=== PATIENT | female | born 1950 | race Caucasian/White ===

== ENCOUNTER 2018-01-12 12:31 | Inpatient (IN) ==
[2018-01-12] MEDS ORDERED: Sod Chloride 0.9% Inj 1,000 ML IV.CONT SCH (16:15)
[2018-01-13] MEDS: Pantoprazole Inj 40 MG Vial IV.PUSH SCH ×3 (00:44→20:58)
[2018-01-13 01:20] LABS: Hematocrit 25.3 % (35.0-46.0); Hemoglobin 8.3 gm/dL (11.6-15.3)
[2018-01-13 06:11] LABS: Eos # (Auto) 0.1 th/mm3 (0.0-0.4); Eos % (Auto) 3.2 % (0.0-4.0); Hematocrit 21.4 % (35.0-46.0); Hemoglobin 7.2 gm/dL (11.6-15.3); Lymph # (Auto) 1.3 th/mm3 (1.0-4.8); Lymph % (Auto) 29.2 % (9.0-44.0); Mean Corpuscular HGB Conc 33.7 % (32.0-36.0); Mean Corpuscular Hemoglobin 30.7 pg (27.0-34.0); Mean Platelet Volume 7.7 fL (7.0-11.0); Mono # (Auto) 0.3 th/mm3 (0.0-0.9); Neut # (Auto) 2.8 th/mm3 (1.8-7.7); Neut % (Auto) 59.6 % (16.0-70.0); Platelet Count 129 th/mm3 (150-450); Red Blood Count 2.35 mil/mm3 (4.00-5.30); White Blood Count 4.5 th/mm3 (4.0-11.0)
[2018-01-13 06:21] LABS: Chloride 111 meq/L (98-107); Potassium 4.3 meq/L (3.5-5.1); Sodium 141 meq/L (136-145)
[2018-01-13 06:25] LABS: Calcium 8.9 mg/dL (8.5-10.1)
[2018-01-13 06:26] LABS: Albumin 2.4 g/dL (3.4-5.0); Anion Gap 5 meq/L (5-15); Blood Urea Nitrogen 26 mg/dL (7-18); Carbon Dioxide 24.9 meq/L (21.0-32.0); Glucose,Random 111 mg/dL (74-106)
[2018-01-13 06:29] LABS: Alanine Aminotransferase 26 U/L (10-53); Aspartate Aminotransferase 31 U/L (15-37); Glomerular Filtration Rate 55 mL/min (>89)
[2018-01-13 06:31] LABS: Total Protein 5.7 g/dL (6.4-8.2)
[2018-01-13 06:32] LABS: Alkaline Phosphatase 73 U/L (45-117)
--- NOTE | 2018-01-13 08:09 | P.HP ---
History of Present Illness Primary Care Physician: Marleen Marti Chief Complaint: Black stools History of Present Illness: This is a pleasant 67-year-old female patient with a known medical history of GERD who presented to the ED with complaints of black tarry stool. Patient states that she has been having black tarry stool for the past 2 days. With associated episodes of nausea and vomiting intermittently she denies any abdominal pain. Patient denies any recent use of NSAIDs. She does take a Prilosec for GERD daily, states that this is well controlled. She does state that she has been feeling lightheaded, dizzy, overall fatigued over the past week. She denies any recent fevers, chills, cough, shortness of breath, diarrhea or dysuria. She does admit to having a colonoscopy roughly 4 years ago which was reportedly negative. Patient does not remember the name of her digital retoucher. 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 Patient was on Coumadin roughly 5 years ago and since that time has been discontinued. Patient denies any significant family medical history. Does admit to smoking a half pack a day of cigarettes for the last 50 years. Denies any alcohol abuse. Has had a cholecystectomy. - Diagnosis (1) GI bleed Inpatient Certification: I certify that the inpatient services were ordered in accordance with Medicare regulations governing the order. This includes certification that hospital inpatient services are reasonable and necessary and in the case of services not specified as inpatient-only under 42 CFR 419.22(n), that they are appropriately provided as inpatient services in accordance to with the 2-midnight benchmark under 43 CFR 412.3(e) Estimated Total Length of Stay (Days): 2 Plans for Post Hospital Care: Home Review of Systems All other systems reviewed negative except as stated in HPI PMFSH - History History Provided By: Patient - Medical History Medical History: Medical History (Last Updated 01/12/18 @ 14:40 by Alannah Boss RN) GERD (gastroesophageal reflux disease) History of pulmonary embolus (PE) Hx of cataract Hx of deep venous thrombosis - Surgical History Surgical History: Surgical History (Last Reviewed 01/12/18 @ 14:40 by Alannah Boss RN) History of cholecystectomy - Family History Family History: Family History (Last Updated 08/08/18 @ 11:55 by Betzaida Naik) Other No pertinent family history - Tobacco History Second Hand Smoke Exposure: Yes Tobacco Use In Past 30 Days: Yes Smoking Status: Current every day smoker Tobacco Type: Cigarettes - Alcohol History How Often Do You Have a Drink Containing Alcohol: 2 to 3 times a week - Substance Use History Substance History: No History of Abuse - Travel History Recent Travel in the [place] Within the Last 8 Weeks: No Recent Travel Out of the Country Within the Last 8 Weeks: No Medications and Allergies Active Medications: Active Medications Pantoprazole Sodium (Protonix Inj) 40 mg IV.PUSH BID [facility] Last Admin: 01/13/18 00:44 Dose: 40 mg Sodium Chloride (Ns Flush) 2 ml IV.FLUSH BID [facility] Last Admin: 01/13/18 00:32 Dose: Not Given Sodium Chloride (Ns Flush) 2 ml IV.FLUSH PRN PRN PRN Reason: FLUSH AFTER USING IV ACCESS Allergies Allergy/AdvReac Type Severity Reaction Status Date / Time codeine Allergy Chest Pain Verified 01/12/18 12:50 Home Medications Medication Instructions Recorded Confirmed Type omeprazole magnesium [Prilosec OTC] 20 mg PO DAILY 01/12/18 01/12/18 History Exam Vital signs: Vital Signs 01/13/18 00:00 Temperature 96.9 F L Pulse Rate 82 Respiratory Rate 16 Blood Pressure 125/61 Pulse Oximetry 100 Intake & Output 01/12/18 01/13/18 01/13/18 18:59 06:59 18:59 Intake Total 620 / 620 Balance 620 / 620 Weight 93.5 kg Intake: Oral 620 / 620 Other: # Voids 2 Weight On Admission 93.5 kg Narrative: GENERAL: Well-developed, well-nourished patient in [facility]. SKIN: Warm and dry. No rash. HEAD: Normocephalic. Atraumatic. EYES: Pupils equal and round. No scleral icterus. No injection or drainage. ENT: No nasal bleeding or discharge. Mucous membranes pink and moist. NECK: Supple. Trachea midline. CARDIOVASCULAR: Regular rate and rhythm. S1, S2 noted. No murmur appreciated. RESPIRATORY: No accessory muscle use. Clear to auscultation. Breath sounds equal bilaterally. GASTROINTESTINAL: Abdomen soft, non-tender, nondistended. Normoactive bowel sounds x4. MUSCULOSKELETAL: No obvious deformities. Extremities without clubbing, cyanosis , or edema. NEUROLOGICAL: Awake and alert. No obvious cranial nerve deficits. Motor grossly within normal limits. 5/5 muscle strength in bilateral upper and lower extremities. Normal speech. PSYCHIATRIC: Appropriate mood and affect; insight and judgment normal. Results - Labs CBC & Chem 7: 01/13/18 08:40 01/13/18 05:50 Labs: Laboratory Results - last 24 hr 01/13/18 01/13/18 01/13/18 01:10 01:10 05:50 CBC w Diff Auto diff final WBC 4.5 RBC 2.35 L Hgb 8.3 L 7.2 L Hct 25.3 L 21.4 L MCV 91.0 D MCH 30.7 MCHC 33.7 RDW 14.0 Plt Count 129 L MPV 7.7 Neut % (Auto) 59.6 Lymph % (Auto) 29.2 Morgan % (Auto) 7.0 Eos % (Auto) 3.2 Baso % (Auto) 1.0 Neut # (Auto) 2.8 Lymph # (Auto) 1.3 Morgan # (Auto) 0.3 Eos # (Auto) 0.1 Baso # (Auto) 0.0 WBC Differential . Differential Comment . Sodium Potassium Chloride Carbon Dioxide Anion Gap BUN Creatinine Estimated GFR Random Glucose Calcium Total Bilirubin AST ALT Alkaline Phosphatase Total Protein Albumin Blood Type O Negative Blood Type Recheck Required Antibody Screen Negative 01/13/18 05:50 CBC w Diff WBC RBC Hgb Hct MCV MCH MCHC RDW Plt Count MPV Neut % (Auto) Lymph % (Auto) Morgan % (Auto) Eos % (Auto) Baso % (Auto) Neut # (Auto) Lymph # (Auto) Morgan # (Auto) Eos # (Auto) Baso # (Auto) WBC Differential Differential Comment Sodium 141 Potassium 4.3 Chloride 111 H Carbon Dioxide 24.9 Anion Gap 5 BUN 26 H Creatinine 1.00 Estimated GFR 55 L Random Glucose 111 H Calcium 8.9 D Total Bilirubin 0.4 AST 31 ALT 26 Alkaline Phosphatase 73 Total Protein 5.7 L D Albumin 2.4 L Blood Type Blood Type Recheck Antibody Screen Caprini VTE Risk Assessment Caprini VTE Risk Assessment: Moderate/High Risk (score >= 2) Caprini Risk Assessment Model: Point Value = 1 Point Value = 2 Point Value = 3 Point Value = 5 Age 41-60 Minor surgery BMI > 25 kg/m2 Swollen legs Varicose veins or History of unexplained or recurrent spontaneous Oral contraceptives or hormone replacement Sepsis (< 1 month) Serious lung disease, including pneumonia (< 1 month) Abnormal pulmonary function Acute myocardial infarction Congestive heart failure (< 1 month) History of inflammatory bowel disease Medical patient at bed rest Age 61-74 Arthroscopic surgery Major open surgery (> 45 min) Laparoscopic surgery (> 45 min) Malignancy Confined to bed (> 72 hours) Immobilizing plaster cast Central venous access Age >= 75 History of VTE Family history of VTE Factor V Leiden Prothrombin [id number] Lupus anticoagulant Anticardiolipin antibodies Elevated serum homocysteine Heparin-induced thrombocytopenia Other congenital or acquired thrombophilia Stroke (< 1 month) Elective arthroplasty Hip, pelvis, or leg fracture Acute spinal cord injury (< 1 month) Prophylaxis Regimen: Total Risk Factor Score Risk Level Prophylaxis Regimen 0-1 Low Early ambulation 2 Moderate Order ONE of the following: *Sequential Compression Device (SCD) *Heparin 5000 units SQ BID 3-4 Higher Order ONE of the following medications: *Heparin 5000 units SQ TID *Enoxaparin/Lovenox 40 mg SQ daily (WT < 150 kg, CrCl > 30 mL/min) *Enoxaparin/Lovenox 30 mg SQ daily (WT < 150 kg, CrCl > 10-29 mL/min) *Enoxaparin/Lovenox 30 mg SQ BID (WT < 150 kg, CrCl > 30 mL/min) AND/OR *Sequential Compression Device (SCD) 5 or more Highest Order ONE of the following medications: *Heparin 5000 units SQ TID (Preferred with Epidurals) *Enoxaparin/Lovenox 40 mg SQ daily (WT < 150 kg, CrCl > 30 mL/min) *Enoxaparin/Lovenox 30 mg SQ daily (WT < 150 kg, CrCl > 10-29 mL/min) *Enoxaparin/Lovenox 30 mg SQ BID (WT < 150 kg, CrCl > 30 mL/min) AND *Sequential Compression Device (SCD) Assessment and Plan - Assessment (1) GI bleed Code(s): K92.2 - Gastrointestinal hemorrhage, unspecified Status: Acute - Plan This is a pleasant 67-year-old female patient with a known medical history of GERD who presented to the ED with complaints of black tarry stool. Patient states that she has been having black tarry stool for the past 2 days. Acute anemia suspect secondary to GI bleed -Patient states that she has been having black tarry stools 2 days. With associated intermittent nausea and vomiting. Reports of one bout of dark emesis. -Patient's hemoglobin 8.5/hematocrit 26.1 on presentation. Has dropped to 7.2 today. -Will transfuse 1 unit PRBCs. Recheck H&H after transfusion. -Check iron studies. -Gastroenterology has been consulted, input and recommendations pending. Likely will need an EGD/colonoscopy. -Abdominal/pelvis CT ordered and reviewed showing no retroperitoneal hemorrhage. Moderate hiatal hernia which is chronic for the patient as well as nonobstructing bilateral renal calculi. -Will start on Protonix IV. -Continue IV fluids. Ensure hydration. -Supportive care. DVT Prophylaxis: SCDs. Hold chemical prophylaxis for now secondary to active bleeding.
[2018-01-13] MEDS ORDERED: Sodium Chlor 0.9% Inj 250 ML IV.SIG SCH (09:00)
[2018-01-13 10:35] LABS: Hematocrit 22.1 % (35.0-46.0); Hemoglobin 7.7 gm/dL (11.6-15.3)
[2018-01-13 16:02] LABS: % Iron Saturation 8.6 % (20-50)
[2018-01-13 16:25] LABS: Hematocrit 30.1 % (35.0-46.0); Hemoglobin 9.8 gm/dL (11.6-15.3)
[2018-01-13] MEDS ORDERED: PEG 3350/E-Lyte Soln 4000 ML Bottle PO ONE (19:28)
--- NOTE | 2018-01-13 20:58 | MB ---
cc: Rebecca Morin MD DATE: 01/13/2018 REASON FOR REFERRAL: Anemia, nausea, vomiting, coffee-ground emesis. Thank you for the consultation HISTORY OF PRESENT ILLNESS: This is a 67-year-old lady who has chronic history of GERD. She said that this has been going on for 30 years, but she had nausea and occasional vomiting if she does not take her Prilosec. The patient has been doing well until 2 days ago, when she started having coffee-ground emesis without any bleeding. She denied any NSAID use. No history of peptic ulcer disease. No other abnormality, had a colonoscopy 4 years ago, which was reportedly negative. No fan runner at this time. She had a DVT in the past and PE, but currently not on any anticoagulation. The patient feels slightly better, but worried about the fact that she vomited the coffee-ground emesis and potential bleeding. REVIEW OF SYSTEMS: All 12-point negative except per HPI. PAST MEDICAL HISTORY: Significant for reflux symptoms, pulmonary embolisms, deep venous thrombosis, cataract surgery, cholecystectomy. FAMILY HISTORY: Negative and noncontributory. SOCIAL HISTORY: Positive for tobacco and rare alcohol, maybe 2-3 times a week. No drug abuse. MEDICATIONS: Reviewed in the chart. ALLERGIES: CODEINE. PHYSICAL EXAMINATION: GENERAL: Alert, oriented, in no acute distress. HEENT: Pupils round, reactive to light. VITAL SIGNS: Stable. NECK: Supple. CHEST: Clear to auscultation and percussion. CARDIAC: Regular rate and rhythm. No murmur or gallops. ABDOMEN: Soft, mild obesity. Positive bowel sounds. No hepatosplenomegaly. EXTREMITIES: No edema, clubbing or cyanosis. NEUROLOGIC: Intact. PSYCHOLOGIC: Appropriate. No focal abnormality or weakness. SKIN: Clear. No jaundice and dry. LABORATORY DATA: 1. White count was 7.2, today is 9.8 after blood transfusion. 2. White count 4.5, platelet 129, BUN 26. 3. Sodium 141. 4. Liver function tests are normal, alkaline phosphatase 73, albumin 2.4. ASSESSMENT AND PLAN: 1. This is a 67-year-old lady with anemia. The patient also has low platelets, questionable etiology. We will plan on doing upper endoscopy and colonoscopy. If those are negative, we may need to get hematology consult because of the platelet also. 2. The patient is not on any blood thinners. 3. The patient reports in the note to the hospitalist that she did not have anything wrong with her colonoscopy, but to me, she told me she had history of polyps. 4. I recommend doing upper endoscopy and colonoscopy because of . I discussed with the patient the procedure and complications. She is agreeable to have it done. This will be done tomorrow. Meanwhile, we will continue monitoring her hemoglobin, give her packed RBC as needed and we will followup with you. MD SUMAYA Crump/NADEGE , 07:33 PM , 07:43 PM
[2018-01-14] MEDS: Pantoprazole Inj 40 MG Vial IV.PUSH SCH ×2 (09:24→20:29)
--- NOTE | 2018-01-14 09:34 | P.PN ---
Subjective Interval history: Follow-up anemia. Patient seen and examined, ambulating in room. Awaiting EGD and colonoscopy today. Status post 1 unit PRBC. Hemoglobin improved today. She denies any acute events overnight. Is improved and feels much better. Physical Exam Vital signs: Vital Signs 01/13/18 12:00 01/13/18 12:40 01/13/18 13:00 Temperature 96.8 F L 96.8 F L 96.9 F L Pulse Rate 72 77 79 Respiratory Rate 18 17 16 Blood Pressure 120/68 117/58 L 121/75 Pulse Oximetry 100 98 01/13/18 13:30 01/13/18 14:17 01/13/18 16:00 Temperature 97.9 F 96.5 F L 97.3 F L Pulse Rate 75 68 72 Respiratory Rate 16 17 18 Blood Pressure 116/57 L 119/60 122/59 L Pulse Oximetry 100 100 100 01/13/18 20:00 01/14/18 00:00 01/14/18 08:00 Temperature 97.3 F L 97.5 F L 96.1 F L Pulse Rate 71 77 80 Respiratory Rate 21 20 17 Blood Pressure 121/61 142/62 H 136/64 Pulse Oximetry 99 97 100 Intake & Output 01/13/18 01/14/18 01/14/18 18:59 06:59 18:59 Intake Total 2320 / 2320 250 / 250 Balance 2320 / 2320 250 / 250 Intake: IV 1000 / 1000 250 / 250 NS Inj 1,000 ML @ 100 mls/hr IV 1000 / 1000 .CONT .Q10H PETE Rx#:[id number] NS Inj 250 ML @ 15 mls/hr IV. 250 / 250 SIG ONCE PETE Rx#:[id number] Oral 920 / 920 Intake (Blood Product) Amt 400 / 400 Rbc As-3 Leukoreduced Unit 400 / 400 [id number] Other: # Voids 2 Date of Last Bowel Movement 01/12/18 # Bowel Movements 0 Narrative: GENERAL: Well-developed, well-nourished patient in [facility]. SKIN: Warm and dry. No rash. Pale. HEAD: Normocephalic. Atraumatic. EYES: Pupils equal and round. No scleral icterus. No injection or drainage. ENT: No nasal bleeding or discharge. Mucous membranes pink and moist. NECK: Supple. Trachea midline. CARDIOVASCULAR: Regular rate and rhythm. S1, S2 noted. No murmur appreciated. RESPIRATORY: No accessory muscle use. Clear to auscultation. Breath sounds equal bilaterally. GASTROINTESTINAL: Abdomen soft, non-tender, nondistended. Normoactive bowel sounds x4. MUSCULOSKELETAL: No obvious deformities. Extremities without clubbing, cyanosis , or edema. NEUROLOGICAL: Awake and alert. No obvious cranial nerve deficits. Motor grossly within normal limits. 5/5 muscle strength in bilateral upper and lower extremities. Normal speech. PSYCHIATRIC: Appropriate mood and affect; insight and judgment normal. Results - Labs CBC & Chem 7: 01/14/18 10:50 01/13/18 05:50 Laboratory Results - last 24 hr 01/13/18 01/13/18 01/13/18 05:50 08:25 08:40 Hgb 7.7 L Hct 22.1 L Iron 34 L TIBC 393 % Saturation 8.6 L MTS Gel Crossmatch See Detail 01/13/18 16:15 Hgb 9.8 L D Hct 30.1 L Iron TIBC % Saturation MTS Gel Crossmatch Assessment and Plan - Assessment (1) GI bleed Code(s): K92.2 - Gastrointestinal hemorrhage, unspecified Status: Acute - Plan This is a pleasant 67-year-old female patient with a known medical history of GERD who presented to the ED with complaints of black tarry stool. Patient states that she has been having black tarry stool for the past 2 days. Acute anemia suspect secondary to GI bleed -Patient states that she has been having black tarry stools 2 days. With associated intermittent nausea and vomiting. Reports of one bout of dark emesis. Has resolved. -Patient's hemoglobin 8.5/hematocrit 26.1 on presentation. Has dropped to 7.2 today. Improved to 9.8 status post 1 unit PRBC. Continue to monitor H&H trend. -Iron studies reviewed, low iron. Will place on supplementation. -Gastroenterology has been consulted, appreciate input recommendations, undergo an EGD and colonoscopy today. Further hospitalization treatment plan will depend on findings. -Abdominal/pelvis CT ordered and reviewed showing no retroperitoneal hemorrhage. Moderate hiatal hernia which is chronic for the patient as well as nonobstructing bilateral renal calculi. -Continue Protonix IV. -Continue IV fluids. Ensure hydration. -Supportive care. DVT Prophylaxis: SCDs. Hold chemical prophylaxis for now secondary to active bleeding. Discharge Planning: Await EGD/colonoscopy
[2018-01-14 11:11] LABS: Baso % (Auto) 0.6 % (0.0-2.0); Eos # (Auto) 0.1 th/mm3 (0.0-0.4); Eos % (Auto) 3.6 % (0.0-4.0); Hematocrit 28.6 % (35.0-46.0); Hemoglobin 9.4 gm/dL (11.6-15.3); Lymph # (Auto) 0.9 th/mm3 (1.0-4.8); Lymph % (Auto) 23.9 % (9.0-44.0); Mean Corpuscular HGB Conc 32.7 % (32.0-36.0); Mean Corpuscular Hemoglobin 30.1 pg (27.0-34.0); Mean Corpuscular Volume 91.9 fL (80.0-100.0); Mean Platelet Volume 7.7 fL (7.0-11.0); Mono # (Auto) 0.2 th/mm3 (0.0-0.9); Mono % (Auto) 6.8 % (0.0-8.0); Neut # (Auto) 2.4 th/mm3 (1.8-7.7); Neut % (Auto) 65.1 % (16.0-70.0); Platelet Count 121 th/mm3 (150-450); Red Blood Count 3.11 mil/mm3 (4.00-5.30); Red Cell Distribution Width 14.6 % (11.6-17.2); White Blood Count 3.6 th/mm3 (4.0-11.0)
--- NOTE | 2018-01-14 13:55 | P.PCN ---
Date of procedure: 01/14/18 Pre-op diagnosis: Iron deficiency anemia Procedure: PROCEDURE PERFORMED EGD with biopsy followed by a colonoscopy with snare polypectomy INDICATION FOR PROCEDURE Iron deficiency anemia PROCEDURE: The procedure, risks and benefits were discussed with Patient/POA and informed consent was obtained. Anesthesia sedated Patient with Diprivan. Patient was placed in the left lateral decubitus position. EGD: The Pentax videoscope was introduced through the oropharynx and advanced to the second portion of the duodenum under direct visualization. Retroflexion was performed in the stomach. FINDINGS: The esophagus there was a long segment Falcon's extending from 24-30 cm multiple biopsies were taken from 4 quadrants at 2 cm intervals otherwise esophageal mucosa was unremarkable The stomach there was a huge hiatal hernia extending from 30 cm to 40 cm from the incisors the gastric mucosa appeared to be somewhat erythemic at the level of the diaphragm otherwise gastric mucosa was unremarkable The duodenum this was normal random biopsies were taken for further evaluation of iron deficiency anemia Colonoscopy: The Pentax videoscope was introduced through the rectum and advanced to cecum where the ileocecal valve and appendiceal orifice were identified. Retroflexion was performed in the rectum. Colonic prep was good FINDINGS: Colonic withdrawal time greater than 6 minutes. As the scope was slowly withdrawn colonic mucosa was carefully inspected the patient was noted to have multiple polyps there was a small one in the ascending small one in the transverse large one in the descending all were excised using hot snare technique and were retrieved for further evaluation as the scope was introduced through the rectum there was loose tissue noted in the rectum of unclear source this was retrieved for further evaluation otherwise the colonoscopy was unremarkable so is retroflexion and rectal examination ESTIMATED BLOOD LOSS: None SPECIMENS REMOVED: Esophageal and colon biopsies COMPLICATIONS: None IMPRESSION: Falcon's esophagus, long segment Large hiatal hernia Colon polyps PLAN: Await biopsies Obtain small bowel follow-through Consider outpatient capsule endoscopy Advance diet once small bowel follow-through has been done Continue with current supportive care and monitor labs Anesthesia: SCOTT Surgeon: Sergio Seay Condition: stable Disposition: floor
--- NOTE | 2018-01-14 19:02 | MB ---
cc: Mallika Sands MD, Tabitha N MD DATE: 01/14/2018 CHIEF COMPLAINT: 1. GI bleed. 2. Anemia. 3. Thrombocytopenia. HISTORY OF PRESENT ILLNESS: Ms. Dahl is a 67-year-old lady with a history of acid reflux that is longstanding who presented to the hospital on 01/13/2018 with a 2-day history of coffee-ground emesis as well as melena. The patient reports that she also has a history of blood clot approximately 5 years ago. She previously followed with a fire protection fabricator in the [facility] and was treated with Coumadin which was discontinued many years ago. CT scan of the abdomen and pelvis from 01/12/2018 showed liver with a homogeneous density without space occupying lesion. No dilation of the biliary tree, spleen homogeneous density without enlargement. Bilateral renal calculi measuring 2-3 mm. No evidence of adenopathy, no evidence of hematoma. Complete blood count with a white blood cell count 3.6, hemoglobin 9.4, and platelet count is 121,000. MCV is 91.9. Hemoglobin wilber has been 7.7, and she is status post transfusion of 1 unit of packed red blood cells. Chemistry studies with normal total bilirubin, AST, ALT and alkaline phosphatase. She has a low total protein and albumin levels. Iron studies with iron of 34, total iron binding capacity 393, % sat of 8.6. REVIEW OF SYSTEMS: As above in the HPI. All other review of systems negative. PAST MEDICAL HISTORY: 1. Acid reflux. 2. History of venous thromboembolism, both DVT and PE, approximately 5 years ago treated with warfarin and not currently on anticoagulation. PAST SURGICAL HISTORY: 1. Gallbladder removal. 2. Cataract surgery. FAMILY HISTORY: No family history of anemia. Significant family history for breast cancer. SOCIAL HISTORY: She smokes about half a pack a day. She drinks 2 drinks per week. No drug use. She is a full-time caregiver for her . MEDICATIONS: 1. Oral Ferrous sulfate. 2. Protonix. 3. Zofran. PHYSICAL EXAMINATION: VITAL SIGNS: Temperature 97.6, pulse 64, respiratory rate 16, blood pressure 132/55 GENERAL: Morbidly obese lady in no distress, resting comfortably in bed. HEENT: Normocephalic, atraumatic. Eyes: PERRLA, EOMI. No scleral icterus. NECK: Supple. No palpable lymphadenopathy. CARDIOVASCULAR: Regular rate and rhythm. No murmurs. RESPIRATORY: Clear to auscultation bilaterally. ABDOMEN: Protuberant, soft, nontender. EXTREMITIES: No edema. NEUROLOGIC: Grossly nonfocal. PSYCHIATRIC: Appropriate mood and affect. ASSESSMENT AND PLAN: 1. Gastrointestinal bleed with associated anemia and iron deficiency. Esophagogastroduodenoscopy with Falcon's esophagus, large hiatal hernia and colon polyps. The esophagus showed long segment with Falcon's extending from 24-30 cm. Multiple biopsies were taken from 4 quadrants at 2 cm intervals. Otherwise, esophageal mucosa was unremarkable. In the stomach, a huge hiatal hernia extending from 30 to 40 cm from the incisors to the gastric mucosa, appeared to be somewhat erythemic at the level of the diaphragm. Otherwise, the gastric mucosa was unremarkable. The patient was found to have multiple polyps. There was 1 in the ascending, 1 in the transverse and then 1 in the descending, which were excised. Pathology results are pending. Gastroenterology team plans to do small bowel follow through tomorrow. She is status post transfusion of 1 unit of packed red blood cells. We will give IV iron sucrose while inpatient. 2. Thrombocytopenia. On CT scan, no evidence of liver disease or hypersplenism. As platelet count has remained stable throughout her hospital stay, No evidence for heparin-induced thrombocytopenia. We will check coags, vitamin B12, folate, LDH, haptoglobin and peripheral blood smear. We will check for hepatitis studies as well as HIV. No evidence for a TMA. Uncertain at baseline as do not have any prior counts at this hospital. MD JUSTIN Duron/ , 06:36 PM , 06:47 PM
[2018-01-14] MEDS ORDERED: Iron Sucrose Inj 200 MG in Sodium Chlor 0.9% Inj 100 ML IV.SIG ONE (20:00)
[2018-01-14 23:00] LABS: Activated Partial Thrombo Time 21.8 sec (24.3-30.1); INR 1.1 Ratio; Prothrombin Time 11.2 sec (9.8-11.6)
[2018-01-15 00:55] LABS: Folate 14.8 ng/mL (3.1-17.5)
[2018-01-15 01:32] LABS: Hepatitis A IgM Antibody Nonreactive (Nonreactive); Hepatitits B Surface Antigen Nonreactive (Nonreactive)
[2018-01-15] MEDS: Pantoprazole Inj 40 MG Vial IV.PUSH SCH (08:32)
[2018-01-15] MEDS ORDERED: Ferrous Sulfate 325 MG Tablet PO SCH (09:00)
[2018-01-15 09:17] LABS: Hematocrit 27.3 % (35.0-46.0); Hemoglobin 9.4 gm/dL (11.6-15.3); Mean Corpuscular HGB Conc 34.4 % (32.0-36.0); Mean Corpuscular Volume 90.2 fL (80.0-100.0); Mean Platelet Volume 7.9 fL (7.0-11.0); Platelet Count 114 th/mm3 (150-450); Red Blood Count 3.02 mil/mm3 (4.00-5.30); Red Cell Distribution Width 14.8 % (11.6-17.2); White Blood Count 3.7 th/mm3 (4.0-11.0)
--- NOTE | 2018-01-15 14:48 | P.DS ---
Date of admission: 01/12/18 23:58 Primary care physician: Marleen Marti Brief History from admission: This is a pleasant 67-year-old female patient with a known medical history of GERD who presented to the ED with complaints of black tarry stool. Patient states that she has been having black tarry stool for the past 2 days. With associated episodes of nausea and vomiting intermittently she denies any abdominal pain. Patient denies any recent use of NSAIDs. She does take a Prilosec for GERD daily, states that this is well controlled. She does state that she has been feeling lightheaded, dizzy, overall fatigued over the past week. She denies any recent fevers, chills, cough, shortness of breath, diarrhea or dysuria. She does admit to having a colonoscopy roughly 4 years ago which was reportedly negative. 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 Patient was on Coumadin roughly 5 years ago and since that time has been discontinued. Patient denies any significant family medical history. Does admit to smoking a half pack a day of cigarettes for the last 50 years. Denies any alcohol abuse. Has had a cholecystectomy. DS: Diagnosis - Discharge Diagnosis (1) GI bleed Status: Acute DS: Medications - Discharge Medications Prescriptions: ferrous sulfate [FeroSul] 325 mg PO DAILY 30 Days #30 tab DS: Summary Hospital Course: This is a pleasant 67-year-old female patient with a known medical history of GERD who presented to the ED with complaints of black tarry stool. Patient states that she has been having black tarry stool for the past 2 days. Acute anemia. Patient states that she has been having black tarry stools 2 days. With associated intermittent nausea and vomiting. Reported of one bout of dark emesis. Patient's hemoglobin 8.5/hematocrit 26.1 on presentation. Dropped to 7.2 today. Improved to 9.8 status post 1 unit PRBC. Iron studies show low iron. Placed on supplementation. Gastroenterology has been consulted, undergo an EGD and colonoscopy, showing Barrets, hernia and polyps. Follow up GI outpatient. Small bowel follow through normal. Abdominal/pelvis CT ordered and reviewed showing no retroperitoneal hemorrhage. Moderate hiatal hernia which is chronic for the patient as well as nonobstructing bilateral renal calculi. Continue PPI on discharge. Patient also did have some thrombocytopenia without known etiology. Hematology has been consulted and will have patient follow up outpatient. Patient is stabilized on day. - Time Spent with Patient Total time spent providing and/or coordinating discharge services: Greater than 30 minutes - Quality: VTE Deep Vein Thrombosis/Pulmonary Embolism Present on Admission: No Exam Vital signs: Vital Signs 01/14/18 16:00 01/14/18 20:00 01/15/18 00:00 Temperature 96.9 F L 98.2 F 97.6 F Pulse Rate 79 70 72 Respiratory Rate 18 20 20 Blood Pressure 139/64 138/74 126/71 Pulse Oximetry 100 20 L 99 01/15/18 08:00 01/15/18 12:00 Temperature 96.2 F L 96.1 F L Pulse Rate 69 68 Respiratory Rate 20 18 Blood Pressure 149/80 H 146/70 H Pulse Oximetry 99 100 Intake & Output 01/14/18 01/15/18 01/15/18 18:59 06:59 18:59 Intake Total 980 / 980 110 / 110 Balance 980 / 980 110 / 110 Weight 95.6 kg Intake: IV 110 / 110 Venofer Inj 200 MG In NS Inj 110 / 110 100 ML @ 110 mls/hr IV.SIG ONCE ONE Rx#:[id number] Oral 480 / 480 Anesthesia Amount 500 / 500 Other: # Voids 2 Date of Last Bowel Movement 01/14/18 01/14/18 Narrative: GENERAL: Well-developed, well-nourished patient in [facility]. SKIN: Warm and dry. No rash. HEAD: Normocephalic. Atraumatic. EYES: Pupils equal and round. No scleral icterus. No injection or drainage. ENT: No nasal bleeding or discharge. Mucous membranes pink and moist. NECK: Supple. Trachea midline. CARDIOVASCULAR: Regular rate and rhythm. S1, S2 noted. RESPIRATORY: No accessory muscle use. Clear to auscultation. Breath sounds equal bilaterally. GASTROINTESTINAL: Abdomen soft, non-tender, nondistended. Normoactive bowel sounds x4. MUSCULOSKELETAL: No obvious deformities. Extremities without clubbing, cyanosis , or edema. NEUROLOGICAL: Awake and alert. No obvious cranial nerve deficits. Motor grossly within normal limits. 5/5 muscle strength in bilateral upper and lower extremities. Normal speech. PSYCHIATRIC: Appropriate mood and affect; insight and judgment normal. Results Procedures completed during hospitalization: EGD Colonoscopy Small bowel follow series Labs on day of discharge: Labs from last 24 hours 01/15/18 01/14/18 01/14/18 08:45 22:30 22:30 WBC 3.7 L RBC 3.02 L Hgb 9.4 L Hct 27.3 L MCV 90.2 MCH 31.0 MCHC 34.4 RDW 14.8 Plt Count 114 L MPV 7.9 Haptoglobin 153 PT INR APTT Fibrinogen Ferritin 45 Lactate Dehydrogenase 218 Vitamin B12 278 Folate 14.8 Hepatitis A IgM Ab Nonreactive Hep Bs Antigen Nonreactive Hep B Core IgM Ab Nonreactive Hep C IgG Ab Nonreactive HIV 1&2 Ab/P24 Ag 4thGn Nonreactive 01/14/18 22:30 WBC RBC Hgb Hct MCV MCH MCHC RDW Plt Count MPV Haptoglobin PT 11.2 INR 1.1 APTT 21.8 L Fibrinogen 242 Ferritin Lactate Dehydrogenase Vitamin B12 Folate Hepatitis A IgM Ab Hep Bs Antigen Hep B Core IgM Ab Hep C IgG Ab HIV 1&2 Ab/P24 Ag 4thGn Discharge Plan - Discharge Disposition Patient Disposition: Discharge Home - Discharge Condition Condition: Good - Discharge Order Discharge Orders: Discharge Order (Routine); Ordered 01/15/18 Ordered By: Betzaida Naik - Discharge Details Anticipated Discharge Date: 01/15/18 - Physicians Team Primary Care Provider: Marleen Marti Attending Provider: Yokasta Gomez Other Providers: Dennis Romano MD ; Med fusion,Insurance ; Mallika Sands - Rxs /Orders / Referrals /Forms Prescriptions: New ferrous sulfate [FeroSul] 325 mg (65 mg iron) Tablet 325 mg PO DAILY 30 Days Qty: 30 RF: 0 Continue omeprazole magnesium [Prilosec OTC] 20 mg Tablet,Delayed Release (Dr/Ec) 20 mg PO DAILY Referrals: Marleen Marti MD [Primary Care Provider] - See Instructions Sergio Seay MD [Physician] - 01/28/18 Mallika Sands [Physician] - 01/21/18
--- NOTE | 2018-01-15 15:07 | FL ---
EXAM DATE: 01/15/2018 11:11 AM EDT AGE/SEX: 67 years / Female INDICATIONS: Iron deficiency anemia. CLINICAL DATA: This is the patient's initial encounter. Patient reports that signs and symptoms have been present for 2 days and indicates a pain score of 0/10. MEDICAL/SURGICAL HISTORY: None. . Cholecystectomy. COMPARISON: No prior exams available for comparison. FLUORO TIME: .3 IMAGE COUNT: 3 CONTRAST: FINDINGS: Preliminary film is unremarkable. The stomach is grossly unremarkable, except for moderate size hiatal hernia. Examination of the small bowel demonstrates normal mucosal pattern involving the jejunum and ileum. There is no evidence of mass or obstruction. No intraluminal filling defects are identified. Small bowel transit time is normal at minutes. Fluoroscopy of the abdomen and terminal ileum demonstrates no abnormality. CONCLUSION: Unremarkable small bowel follow-through examination. Moderate-sized hiatal hernia. Electronically signed by: Yuri Yañez MD 01/15/2018 3:06 PM EDT
== END 2018-01-15 17:39 | disposition home or self-care (01) ==
LOC: PHEDDLT 23:48 → PH3 23:58
PROVIDERS: ADMIT Hospitalist; ATTEND Hospitalist